=== PATIENT | female | born 1975 | race Caucasian/White ===

== ENCOUNTER 2017-05-03 21:51 | Emergency (ER) | payer MEDICARE ==
[2017-05-03 22:08] VITALS: BP 149/78; PULSE 99; RESP 18; TEMP 97.1; O2SAT 98
[2017-05-03] MEDS ORDERED: INSULIN GLARGINE, RECOMBINAN 100 U/ML SOL SC ONE (22:21)
[2017-05-03] MEDS ORDERED: INSULIN HUMAN REGULAR 100 U/ML SOL ONE (22:25)
[2017-05-04] MEDS ORDERED: HUMALOG PEN 100 U/ML SC SCH (07:00)
[2017-05-04] MEDS ORDERED: INSULIN GLARGINE, RECOMBINAN 100 U/ML SOL SC SCH (21:00)
== END 2017-05-03 22:56 | disposition home or self-care (01) | DRG 639 ==
LOC: ED 21:51
DX: E11.65 Type 2 diabetes mellitus with hyperglycemia (principal)
CPT/HCPCS: 82962; 99283; J1815; J1817